=== PATIENT | male | born 1990 | race Hispanic/Latino ===

== ENCOUNTER 2023-03-01 18:33 | Emergency (ER) | payer BC ==
[~2023-03-01] VITALS: Ht 177.8 cm; Wt 145.1 kg
[2023-03-01 18:50] VITALS: BP 135/83; PULSE 78; RESP 18
== END 2023-03-01 21:29 | disposition left against medical advice (07) ==
LOC: EDH 18:33
DX: S61.215A Laceration without foreign body of left ring finger without damage to nail, initial encounter (principal); Z53.21 Procedure and treatment not carried out due to patient leaving prior to being seen by health care provider; W26.0XXA Contact with knife, initial encounter; Y93.89 Activity, other specified; Y92.89 Other specified places as the place of occurrence of the external cause; Y99.8 Other external cause status